=== PATIENT | male | born 1985 | race African-American/Black ===

== ENCOUNTER 2018-05-26 20:47 | Emergency (ER) | payer OTHER ==
[~2018-05-26] VITALS: Ht 177.8 cm; Wt 140.6 kg
[2018-05-26 20:50] VITALS: BP 150/82
--- NOTE | 2018-05-26 21:35 | PHYS DOC ---
Past Medical History Past Medical History: Depression, Schizophrenia (ARNULFO KAUR APRN) Past Surgical History: No Surgical History (ARNULFO KAUR APRN) Alcohol Use: Rarely Drug Use: Marijuana (ARNULFO KAUR APRN) Adult General Chief Complaint Chief Complaint: Congestion HPI HPI 32 y/o male presents to ER via POV for c/o cough, congestion and SOA for past 2 days. He reports he has been exposed to children with flu like illness recently. He reports his cough has been nonprod. and denies any CP/ palpitations. He reports he has felt congested and has had sore throat denying any difficulty swallowing. He reports sxs have slightly improved since onset and he has been using OTC meds such as Vicks, mucinex, and nyquil. He denies N/V /D or urinary sxs. He denies LAMB but states he does have some sinus congestion. He denies fever with current temp. 97.8. Pt is daily smoker. He denies any recent travel. (ARNULFO KAUR APRN) Review of Systems Review of Systems Constitutional: Denies fever or chills. Reports bodyaches Eyes: Denies change in visual acuity, redness, or eye pain [] HENT: Reports sinus congestion and sore throat- denies difficulty swallowing Respiratory: Reports nonprod. cough and SOA- denies SOA increases with exertion Cardiovascular: Denies CP/tightness GI: Denies abdominal pain, nausea, vomiting, bloody stools or diarrhea [] : Denies urinary sxs Musculoskeletal: Denies back/neck pain Integument: Denies rash, swelling or skin lesions [] Neurologic: Denies headache, focal weakness or sensory changes [] Endocrine: Denies polyuria or polydipsia [] All other systems were reviewed and found to be within normal limits, except as documented in this note. (ARNULFO KAUR APRN) Current Medications Current Medications Current Medications Medications (Trade) Dose Ordered Sig/Chiara Start Time Stop Time Status Last Admin Dose Admin Ibuprofen (Motrin) 800 mg 1X ONCE 05/26/18 22:00 05/26/18 22:00 DC 05/26/18 21:46 800 MG Oxymetazoline HCl (Afrin) 2 spray 1X ONCE 05/26/18 22:00 05/26/18 22:00 DC 05/26/18 21:46 2 SPRAY (ASTER TORRES DO) Allergies Allergies Allergies Coded Allergies Type Severity Reaction Last Updated Verified No Known Drug Allergies 09/26/14 No (ASTER TORRES DO) Physical Exam Physical Exam Constitutional: Well developed, well nourished, no acute distress, non-toxic appearance. [] HENT: Normocephalic, atraumatic, bilateral ears with mild erythema at TM without bulging/perforation/purulent drainage, oropharynx moist- smoke odor on breath. Mild pharyngeal erythema without swelling- uvula midline, no oral exudates, nasal congestion bilat. without drainage- tender in maxillary sinuses without facial swelling Eyes: Pupils equal, conjunctiva normal, no discharge. [] Neck: Normal range of motion, no tenderness, supple, no stridor/gross adenopathy. Trachea midline Cardiovascular: Tachycardic heart rate on triage- during exam rechecked with regular rhythm in 80-90s, no murmur [] Lungs & Thorax: Bilateral breath sounds clear to auscultation- resp. equal/ nonlabored. Good air movement throughout all lung cueto Abdomen: Bowel sounds normal, soft, no tenderness, no masses, no pulsatile masses. [] Skin: Warm, dry, no erythema, no rash. [] Back: No tenderness, no CVA tenderness. [] Extremities: No tenderness, no cyanosis, no clubbing, ROM intact, no edema. [] Neurologic: Alert and oriented X 3, normal motor function, normal sensory function, no focal deficits noted. [] Psychologic: Affect normal, judgement normal, mood normal. [] (ARNULFO KAUR APRN) Current Patient Data Vital Signs Vital Signs Date Time Temp Pulse Resp B/P (MAP) Pulse Ox O2 Delivery O2 Flow Rate FiO2 05/26/18 20:50 97.8 118 20 150/82 (104) 96 Room Air 97.8 (ASTER TORRES DO) EKG EKG [] (ARNULFO KAUR APRN) Radiology/Procedures Radiology/Procedures [] (ARNULFO KAUR APRN) Course & Med Decision Making Course & Med Decision Making Pt was evaluated for generalized cold like illness as had sinus congestion and sinus pressure. Plan of care was discussed with pt as his lung sounds were clear with good air movement. No cough noted during exam. Pt was afebrile although reported he had been exposed to others with flu like illness- flu test was offered and he preferred not to have this done. Pt opted for tx of Afrin and Ibuprofen while in the ER. After those administered on re-evaluation pt reports he is able to breath much better and is feeling much less congested. He is in no distress at time of re-eval. Discussed probable viral illness and advised on smoking cessation. Education provided on s&s to return to ER for and will provide with clinic/physician resource sheet for f/u. Pt advised on increasing fluids, Tylenol/ibuprofen PRN, and afrin use advising of not to use more than 3 days. Discharge instructions discussed. (ARNULFO KAUR APRN) Dragon Disclaimer Dragon Disclaimer This electronic medical record was generated, in whole or in part, using a voice recognition dictation system. (ARNULFO KAUR APRN) Departure Departure Impression: Primary Impression: Congestion of nasal sinus Additional Impression: Cough Disposition: 01 HOME, SELF-CARE Condition: STABLE Referrals: NO PCP (PCP) Patient Instructions: Cough, Adult, Sinus Headache, Smoking Cessation Additional Instructions: Drink plenty of fluids. Avoid smoking. You can take [id number]-[id number] Tylenol and/or ibuprofen for pain and fever control. You can use Afrin for 3 days do not use longer as this will cause rebound symptoms and irritate your sinuses. If you prefer no sinus spray other options are allergy medications- zyrtec/sloan examples. Take as directed on container. If symptoms persist follow-up with your primary doctor for re-evaluation and further care. Attending Signature Attending Signature I have reviewed the PA/BAG MAKER's note and plan of care. I was available for consultation as needed during the patient's visit in the emergency department. I agree with the clinical impression, plan, and disposition. (ASTER TORRES DO) Problem Qualifiers ARNULFO KAUR APRN May 26, 2018 21:35 ASTER TORRES DO Jun 14, 2018 17:52
[2018-05-26] MEDS ORDERED: OXYMETAZOLINE 0.05% NASAL SPRAY 30ML BOTTLE. NS ONE (22:00)
[2018-05-26] MEDS ORDERED: IBUPROFEN 400 MG TABLET. PO ONE (22:00)
== END 2018-05-26 21:55 | disposition home or self-care (01) ==
LOC: ER 20:47
DX: R09.81 Nasal congestion (principal); R05 Cough; F32.9 Major depressive disorder, single episode, unspecified; F20.9 Schizophrenia, unspecified
CPT/HCPCS: 99283

== ENCOUNTER 2018-08-20 21:24 | Emergency (ER) | payer MEDICAID, OTHER ==
[~2018-08-20] VITALS: Ht 177.8 cm; Wt 131.5 kg
[2018-08-20 21:34] VITALS: BP 144/82
[2018-08-20] MEDS ORDERED: FLUORESCEIN OPHTH TEST STRIP. OD ONE (21:45)
[2018-08-20] MEDS ORDERED: TETRACAINE 0.5% OPHTH SOLUTION 4ML BOTTLE. OD ONE (21:45)
[2018-08-20] MEDS ORDERED: ERYTHROMYCIN 0.5% OPHTH OINTMENT 1GM TUBE. OD ONE (21:45)
[2018-08-20] MEDS ORDERED: ERYT1OIN6 OP (22:04)
--- NOTE | 2018-08-20 22:04 | PHYS DOC ---
Past Medical History Past Medical History: No Pertinent History, Depression, Schizophrenia Past Surgical History: No Surgical History Smoking: Greater than 1 pack/day Alcohol Use: Rarely Drug Use: Marijuana Adult General Chief Complaint Chief Complaint: EYE PROBLEMS HPI HPI Patient is a 32-year-old male who presents with eye problems. 3 days ago he noticed that his right eye was tender to touch. This morning he woke up and his high was glued shut with pus was tender. He is wiped his eye with a wash rag this morning to clean it off and it opened. He has no known sick contacts. There was no trauma and he does not remember getting anything in his eye. He denies fever and chills. Review of Systems Review of Systems Constitutional: Denies fever or chills Eyes: Reports eye redness and eye pain HENT: Denies nasal congestion or sore throat Respiratory: Denies cough or shortness of breath Cardiovascular: Denies chest pain or palpitations GI: Denies abdominal pain, nausea, or vomiting : Denies dysuria or hematuria Musculoskeletal: Denies back pain or joint pain Integument: Denies rash or skin lesions Neurologic: Denies headache, focal weakness or sensory changes Complete systems were reviewed and found to be within normal limits, except as documented in this note. Current Medications Current Medications Current Medications Medications (Trade) Dose Ordered Sig/Chiara Start Time Stop Time Status Last Admin Dose Admin Erythromycin (Romycin) 0.25 inch 1X ONCE 08/20/18 21:45 08/20/18 21:46 DC 08/20/18 21:45 0.25 INCH Fluorescein Sodium (Ful-Jessika) 1 strip 1X ONCE 08/20/18 21:45 08/20/18 22:01 DC Tetracaine HCl (Tetracaine) 2 drop 1X ONCE 08/20/18 21:45 08/20/18 22:01 DC Allergies Allergies Allergies Coded Allergies Type Severity Reaction Last Updated Verified No Known Drug Allergies 09/26/14 No Physical Exam Physical Exam Constitutional: Well developed, well nourished, no acute distress, non-toxic appearance HENT: Normocephalic, atraumatic, oropharynx moist Eyes: PERRL, EOMI, right conjunctiva mildly erythematous, no discharge, hordoleum present on right upper eyelid Neck: Normal range of motion, no tenderness, supple Cardiovascular: Heart rate normal, regular rhythm Lungs & Thorax: Bilateral breath sounds clear to auscultation, no wheezing Abdomen: Soft, no tenderness Skin: Warm, dry, no erythema, no rash Back: No tenderness, no CVA tenderness Extremities: No tenderness, ROM intact, no edema Neurologic: Alert and oriented X 3, normal motor function, normal sensory function, no focal deficits noted Psychologic: Affect normal, judgement normal, mood normal Current Patient Data Vital Signs Vital Signs Date Time Temp Pulse Resp B/P (MAP) Pulse Ox O2 Delivery O2 Flow Rate FiO2 08/20/18 21:34 99.0 110 16 144/82 (102) 95 Room Air 99.0 EKG EKG [] Radiology/Procedures Radiology/Procedures [] Course & Med Decision Making Course & Med Decision Making Mr. Lopez is a 32-year-old male who presents with eye problems. He has a 3 day history of right eye tenderness woke up this morning with his eye shut with pus. On physical exam his right conjunctiva is mildly erythematous with a hordeolum present on upper eyelid. We gave him erythromycin gel and told him to use warm compresses. If it does not improve with the gel he should see an precision inspector. Patient stable for discharge with outpatient follow-up with PCP. Discussed findings and plan with patient, who acknowledge understanding and agreement. [] Dragon Disclaimer Dragon Disclaimer This electronic medical record was generated, in whole or in part, using a voice recognition dictation system. Departure Departure Impression: Primary Impression: Conjunctivitis Additional Impression: Stye external Disposition: 01 HOME, SELF-CARE Condition: STABLE Referrals: Nereyda AMARAL MD (PCP) Patient Instructions: Conjunctivitis (Viral and Bacterial), Sty Scripts Erythromycin Base (Erythromycin) 1 Gm Oint...g. 0.25 INCH OP QID for 5 Days, MISC Prov: ASTER TORRES DO 08/20/18 Problem Qualifiers Primary Impression: Conjunctivitis Conjunctivitis type: acute Acute conjunctivitis type: unspecified Laterality: right Qualified Codes: H10.31 - Unspecified acute conjunctivitis, right eye Additional Impression: Stye external Laterality: right Eyelid: unspecified eyelid Qualified Codes: H00.013 - Hordeolum externum right eye, unspecified eyelid ASTER TORRES DO Aug 20, 2018 22:04
== END 2018-08-20 22:21 | disposition home or self-care (01) ==
LOC: ER 21:24
DX: H00.011 Hordeolum externum right upper eyelid (principal); H10.31 Unspecified acute conjunctivitis, right eye; F20.9 Schizophrenia, unspecified; F17.200 Nicotine dependence, unspecified, uncomplicated
CPT/HCPCS: 99283

== ENCOUNTER 2018-09-28 20:41 | Emergency (ER) | payer MEDICAID ==
[~2018-09-28] VITALS: Ht 175.3 cm; Wt 131.5 kg
[~2018-09-28 20:41] MED LIST: ERYT1OIN6 OP
[2018-09-28 21:00] VITALS: BP 157/102
[2018-09-28] MEDS ORDERED: IBUPROFEN 200 MG TABLET. PO ONE (22:00)
[2018-09-28] MEDS ORDERED: HYDROcodone/APAP 5/325MG 1 TAB TABLET PO ONE (22:00)
--- NOTE | 2018-09-28 23:24 | RAD ---
INDICATION: Arm swelling COMPARISON: None. TECHNIQUE: Grayscale, color and doppler ultrasound images were obtained of the right upper extremity venous vasculature. RIGHT: No thrombus identified in the internal jugular, subclavian, axillary, brachial, basilic, cephalic, radial or ulnar veins. IMPRESSION: 1. No thrombus identified in deep venous system of right upper extremity. Electronically signed by: Satya Hein MD (09/28/2018 11:21 PM) [facility]
[2018-09-28] MEDS ORDERED: CEPH-264 PO (23:30)
--- NOTE | 2018-09-28 23:30 | PHYS DOC ---
Past Medical History Past Medical History: No Pertinent History, Depression, Schizophrenia Past Surgical History: No Surgical History Alcohol Use: Rarely Drug Use: Marijuana Adult General Chief Complaint Chief Complaint: UPPER EXTREMITY PAIN HPI HPI 32-year-old male presents to ER via POV for complaints of right arm pain and swelling. Patient states he woke this morning having pain in his right elbow extending to his right hand with swelling from his wrist to his hand. She denies fever. Patient denies any known injury. Patient states he had a little bit of tingling sensation in his forearm yesterday but woke this morning with increased pain and swelling which wasn't there yesterday. Pt denies taking any ove j-acf-enflosl medications prior to arrival. Pt is daily smoker. Denies prior blood clot hx or recent travel. Review of Systems Review of Systems Constitutional: Denies fever or chills Respiratory: Denies cough or shortness of breath [] Cardiovascular: No additional information not addressed in HPI [] GI: Denies abdominal pain, nausea, vomiting, bloody stools or diarrhea [] : Denies urinary sxs Musculoskeletal: Denies back pain. Reports rt elbow/forearm/wrist/hand pain with swelling in rt wrist/hand Integument: Denies rash or skin lesions [] Neurologic: Denies headache, focal weakness or sensory changes [] All other systems were reviewed and found to be within normal limits, except as documented in this note. Current Medications Current Medications Current Medications Medications (Trade) Dose Ordered Sig/Chiara Start Time Stop Time Status Last Admin Dose Admin Acetaminophen/ Hydrocodone Bitart (Lortab 5/325) 1 tab 1X ONCE 09/28/18 22:00 09/28/18 22:01 DC 09/28/18 21:57 1 TAB Ibuprofen (Motrin) 600 mg 1X ONCE 09/28/18 22:00 09/28/18 22:01 DC 09/28/18 21:57 600 MG Allergies Allergies Allergies Coded Allergies Type Severity Reaction Last Updated Verified No Known Drug Allergies 09/26/14 No Physical Exam Physical Exam Constitutional: Well developed, well nourished, no acute distress, non-toxic appearance. [] HENT: Normocephalic, atraumatic, oropharynx moist, nose normal. [] Eyes: Pupils equal, conjunctiva normal, no discharge. [] Neck: Normal range of motion, supple Cardiovascular: Heart rate regular rhythm- 90s during exam had been tachycardic at triage, no murmur [] Lungs & Thorax: Bilateral breath sounds clear to auscultation- resp. equal/n onlabored Abdomen: Bowel sounds normal, soft, no tenderness Skin: Warm, dry, no erythema, no rash. [] Back: No tenderness, no CVA tenderness. [] Extremities: No cyanosis, no clubbing, ROM intact. 2+ bilat. radial. Tender on palp. posterior rt elbow without palp. deformity. Tenderness extends into rt forearm/wrist/hand. Rt wrist/hand swelling with warmth in lateral side of rt hand- pt is skin tone difficult to fully assess for cellulitic appearance. No induration. No visible wounds. Full tube fitter with rt hand. Brisk cap refill. Neurologic: Alert and oriented X 3, normal motor function, normal sensory function, no focal deficits noted. [] Psychologic: Affect normal, judgement normal, mood normal. [] Current Patient Data Vital Signs Vital Signs Date Time Temp Pulse Resp B/P (MAP) Pulse Ox O2 Delivery O2 Flow Rate FiO2 09/28/18 21:57 16 99 Room Air 09/28/18 21:00 98.6 107 157/102 (120) 98.6 EKG EKG [] Radiology/Procedures Radiology/Procedures PROCEDURE: VENOUS UPPER EXTREMITY RIGHT INDICATION: Arm swelling COMPARISON: None. TECHNIQUE: Grayscale, color and doppler ultrasound images were obtained of the right upper extremity venous vasculature. RIGHT: No thrombus identified in the internal jugular, subclavian, axillary, brachial, basilic, cephalic, radial or ulnar veins. IMPRESSION: 1. No thrombus identified in deep venous system of right upper extremity. Electronically signed by: Satya Jarquin MD (09/28/2018 11:21 PM) [facility] DICTATED and SIGNED BY: SATYA JARQUIN MD DATE: 09/28/18 9244 Course & Med Decision Making Course & Med Decision Making Pertinent Imaging studies reviewed. (See chart for details) Patient was evaluated in the ER for complaints of right arm pain with swelling in his wrist and hand. Patient denied any known injury. Patient had tenderness on exam and right elbow with no obvious deformity x-ray was obtained and was reviewed by Dr. Mc with no obvious displaced fractures. Patient had ultrasound which was negative for DVT right upper extremity. Discussed imaging results with patient as well as probable cellulitis. Discussed plans for home discharge with prescription for Keflex. Patient advised on Tylenol and or ibuprofen use. Education provided on signs and symptoms to return to ER. Discharge instructions were discussed. Patient to follow-up with primary care physician if symptoms persist or with any concerns. Patient reported following ibuprofen and dose of [place] while in the ER he did have improvement in pain. On reexamination he has had no change in appearance of right upper extremity with full range of motion. He is PMS intact in right upper extremity. Dragon Disclaimer Dragon Disclaimer This electronic medical record was generated, in whole or in part, using a voice recognition dictation system. Departure Departure Impression: Primary Impression: Cellulitis Additional Impression: Arm pain, right Disposition: 01 HOME, SELF-CARE Condition: STABLE Referrals: Nereyda AMARAL MD (PCP) Patient Instructions: Cellulitis Additional Instructions: Tylenol and/or ibuprofen as needed for pain as directed on container. Follow-up with your primary care physician if symptoms persist and for reevaluation as needed or return to the Emergency Room for further care. Scripts Cephalexin (KEFLEX) 500 Mg Capsule 1 CAP PO BID, #14 CAP 0 Refills Prov: ARNULFO KAUR APRN 09/28/18 Problem Qualifiers ARNULFO KAUR APRN Sep 28, 2018 23:30
--- NOTE | 2018-09-29 09:08 | RAD ---
Examination: ELBOW RIGHT 3V History: Right elbow pain Comparison/Correlation: None Findings: Total 4 images of the right elbow were obtained. Joint spaces are normal. Nonspecific calcific densities are noted along the course of the distal triceps tendon attachment site. Calcification also is present just deep to the distal triceps tendon. No joint effusion suspected. Impression: Nonspecific calcification of the distal triceps tendon distribution. Correlate for possibility of avulsion injury at the distal triceps tendon attachment site. Clinically for possibility of calcific tendinitis. No degenerative changes. Electronically signed by: Tirso Mariscal MD (09/29/2018 9:06 AM) [facility]
== END 2018-09-28 23:36 | disposition home or self-care (01) ==
LOC: ER 20:41
DX: L03.113 Cellulitis of right upper limb (principal); M25.521 Pain in right elbow; F20.9 Schizophrenia, unspecified
CPT/HCPCS: 73080; 93971; 99284

== ENCOUNTER 2018-12-04 16:03 | Emergency (ER) | payer MEDICAID ==
[~2018-12-04] VITALS: Ht 177.8 cm; Wt 138.3 kg
[~2018-12-04 16:03] MED LIST changes: +CEPH-264 PO
[2018-12-04 16:40] VITALS: BP 167/107
[2018-12-04] MEDS ORDERED: KETOROLAC 30 MG/ML VIAL. IM STA (16:55)
--- NOTE | 2018-12-04 17:05 | PHYS DOC ---
Past Medical History Past Medical History: Schizophrenia (ASTER SCHOFIELD APRN) Past Surgical History: No Surgical History (ASTER SCHOFIELD APRN) Alcohol Use: None Drug Use: None (ASTER SCHOFIELD APRN) Attending Signature I have participated in the care of this patient and I have reviewed and agree with all pertinent clinical information above including history, exam, and recommendations. (MILIND ROACH MD) Adult General Chief Complaint Chief Complaint: LOWER EXT PAIN HPI HPI Patient is a 33 year old male who presents with right ankle pain has been ongoing for 3 days. The patient states his pain levels 10 out of 10 in severity and he took an ibuprofen around 10:30 yesterday which did not help. Denies any trauma to the extremity. (ASTER SCHOFIELD APRN) Review of Systems Review of Systems Constitutional: Denies fever or chills [] Eyes: Denies change in visual acuity, redness, or eye pain [] HENT: Denies nasal congestion or sore throat [] Respiratory: Denies cough or shortness of breath [] Cardiovascular: No additional information not addressed in HPI [] GI: Denies abdominal pain, nausea, vomiting, bloody stools or diarrhea [] : Denies dysuria or hematuria [] Musculoskeletal: Reports R ankle pain. Integument: Denies rash or skin lesions [] Neurologic: Denies headache, focal weakness or sensory changes [] Endocrine: Denies polyuria or polydipsia [] Complete systems were reviewed and found to be within normal limits, except as documented in this note. (ASTER SCHOFIELD APRN) Current Medications Current Medications Current Medications Medications (Trade) Dose Ordered Sig/Chiara Start Time Stop Time Status Last Admin Dose Admin Ketorolac Tromethamine (Toradol 30mg Vial) 30 mg 1X STAT 12/04/18 16:55 12/04/18 16:59 DC 12/04/18 17:15 30 MG (MILIND ROACH MD) Allergies Allergies Allergies Coded Allergies Type Severity Reaction Last Updated Verified No Known Drug Allergies 09/26/14 No (MILIND ROACH MD) Physical Exam Physical Exam Constitutional: Well developed, well nourished, no acute distress, non-toxic appearance. [] HENT: Normocephalic, atraumatic, bilateral external ears normal, oropharynx moist, no oral exudates, nose normal. [] Eyes: PERRLA, EOMI, conjunctiva normal, no discharge. [] Neck: Normal range of motion, no tenderness, supple, no stridor. [] Cardiovascular:Heart rate regular rhythm, no murmur [] Lungs & Thorax: Bilateral breath sounds clear to auscultation [] Abdomen: Bowel sounds normal, soft, no tenderness, no masses, no pulsatile masses. [] Skin: Warm, dry, no erythema, no rash. [] Back: No tenderness, no CVA tenderness. [] Extremities: Diffuse tenderness to R ankle. Mild edema. Neurovascular status intact. Pedal pulses equal bilaterally. Neurologic: Alert and oriented X 3, normal motor function, normal sensory function, no focal deficits noted. [] Psychologic: Affect normal, judgement normal, mood normal. [] (ASTER SCHOFIELD APRN) Current Patient Data Vital Signs Vital Signs Date Time Temp Pulse Resp B/P (MAP) Pulse Ox O2 Delivery O2 Flow Rate FiO2 12/04/18 16:40 98.6 107 16 167/107 (127) 94 Room Air 98.6 (MILIND ROACH MD) EKG EKG [] (ASTER SCHOFIELD APRN) Radiology/Procedures Radiology/Procedures X-ray interpreted by Dr. Roach No obvious acute abnormalities.[] (ASTER SCHOFIELD APRN) Course & Med Decision Making Course & Med Decision Making Pertinent Labs and Imaging studies reviewed. (See chart for details) Will get X-ray and give Toradol. (ASTER SCHOFIELD APRN) Dragon Disclaimer Dragon Disclaimer This electronic medical record was generated, in whole or in part, using a voice recognition dictation system. (ASTER SCHOFIELD APRN) Departure Departure Impression: Primary Impression: Ankle pain Disposition: HOME, SELF-CARE Condition: STABLE Referrals: Nereyda AMARAL MD (PCP) Patient Instructions: Ankle Pain Additional Instructions: Thank you for visiting [facility]. We appreciate you trusting us with your care. If any additional problems come up don't hesitate to return to visit us. Please follow up with your primary care provider so they can plan ad ditional care if needed and know about the problem that you had. If symptoms worsen come back to the Emergency Department. Any concerning symptoms that start such as chest pain, shortness of air, weakness or numbness on one side of the body, running high fevers or any other concerning symptoms return to the ER. Problem Qualifiers Primary Impression: Ankle pain Chronicity: acute Laterality: right Qualified Codes: M25.571 - Pain in right ankle and joints of right foot ASTER SCHOFIELD APRN Dec 04, 2018 17:05 MILIND ROACH MD Dec 05, 2018 09:37
--- NOTE | 2018-12-04 17:27 | RAD ---
ANKLE RIGHT 3V History: Swelling. Pain. Technique: 3 views right ankle. Comparison: None. Findings: Normal alignment. No fracture. Symmetric ankle mortise. Tiny plantar calcaneal spur. Impression: 1. No acute osseous abnormality. Electronically signed by: Zac Malik DO (12/04/2018 5:24 PM) [facility]
== END 2018-12-04 17:34 | disposition home or self-care (01) ==
LOC: ER 16:03
DX: M25.571 Pain in right ankle and joints of right foot (principal)
CPT/HCPCS: 73610; 96372; 99284; J1885

== ENCOUNTER 2019-07-04 18:06 | Emergency (ER) | payer MEDICAID ==
[~2019-07-04] VITALS: Ht 180.3 cm; Wt 140.9 kg
[2019-07-04] MEDS ORDERED: IV NORMAL SALINE 1000ML BAG 1,000 ML IV SCH (18:52)
[2019-07-04] MEDS ORDERED: fentaNYL PF VIAL 100 MCG/2 ML VIAL IV PRN (19:00)
[2019-07-04] MEDS ORDERED: ONDANSETRON PF 4 MG/2 ML VIAL. IVP ONE (19:00)
--- NOTE | 2019-07-04 19:04 | PHYS DOC ---
Past Medical History Past Medical History: Depression, Schizophrenia Past Surgical History: No Surgical History Smoking Status: Never Smoker Alcohol Use: None Drug Use: None General Adult EDM: Chief Complaint: SHORTNESS OF BREATH HPI: HPI: Patient is a 33 year old male who presents with complaint of right-sided rib pain for the last 2 to 3 days. Patient states that pain is sharp in nature and states that it is worsened with deep breathing. He states that he does have some shortness of breath, primarily because it hurts to breathe. He denies any nausea, vomiting or diaphoresis. He denies any precordial chest pain. Patient denies any recent injuries. He has had no abdominal pain. [] Review of Systems: Review of Systems: Constitutional: Denies fever or chills. [] Respiratory: Admits to shortness of breath. [] Cardiovascular: Denies chest pain or edema. [] GI: Denies abdominal pain, nausea, vomiting or diarrhea. [] Integument: Denies rash. [] Neurologic: Denies headache, focal weakness or sensory changes. [] A full 10 point review of systems has been reviewed and is otherwise negative. Heart Score: Risk Factors: Risk Factors: DM, Current or recent (<one month) smoker, HTN, HLP, family history of CAD, obesity. Risk Scores: Score 0 - 3: 2.5% MACE over next 6 weeks - Discharge Home Score 4 - 6: 20.3% MACE over next 6 weeks - Admit for Clinical Observation Score 7 - 10: 72.7% MACE over next 6 weeks - Early Invasive Strategies Current Medications: Current Medications Medications (Trade) Dose Ordered Sig/[facility] Start Time Stop Time Status Last Admin Dose Admin Fentanyl Citrate (Fentanyl 2ml Vial) 50 mcg PRN Q15MIN PRN 07/04/19 19:00 07/05/19 18:59 UNV Ondansetron HCl (Zofran) 4 mg 1X ONCE 07/04/19 19:00 07/04/19 19:01 UNV Sodium Chloride 1,000 ml @ 1,000 mls/hr Q1H 07/04/19 18:52 07/04/19 19:51 UNV Allergies: Allergies: Allergies Coded Allergies Type Severity Reaction Last Updated Verified No Known Drug Allergies 09/26/14 No Physical Exam: PE: Constitutional: Well developed, well nourished, no acute distress, non-toxic appearance. [] HENT: Normocephalic, atraumatic, bilateral external ears normal, oropharynx moist, no oral exudates, nose normal. [] Eyes: PERRLA, EOMI, conjunctiva normal, no discharge. [] Neck: Normal range of motion, no tenderness, supple, no stridor. [] Cardiovascular: Regular rate and rhythm [] Lungs & Thorax: Bilateral breath sounds clear to auscultation [] Abdomen: Bowel sounds normal, soft, no tenderness. [] Skin: Warm, dry, no erythema, no rash. [] Extremities: No tenderness, no cyanosis, no clubbing, ROM intact. [] Neurologic: Alert and oriented X 3, no focal deficits noted. [] Current Patient Data: Vital Signs: Vital Signs Date Time Temp Pulse Resp B/P (MAP) Pulse Ox O2 Delivery O2 Flow Rate FiO2 07/04/19 18:44 98.9 94 20 165/119 (134) 97 Room Air 98.9 EKG: EKG: [] Radiology/Procedures: Radiology/Procedures: [] Impression: PROCEDURE: PORTABLE CHEST 1V PORTABLE CHEST 1V History: Chest wall pain. Comparison: September 26, 2014 Findings: Minimal left midlung linear atelectasis. No consolidation or pleural effusion. Normal heart size. No pneumothorax. Impression: 1. No acute cardiopulmonary process. Electronically signed by: Zac Malik DO (07/04/2019 7:26 PM) [facility] Course & Med Decision Making: Course & Med Decision Making Pertinent Labs and Imaging studies reviewed. (See chart for details) [] Dragyoselyn Disclaimer: Dragyoselyn Disclaimer: This electronic medical record was generated, in whole or in part, using a voice recognition dictation system. Departure Departure Impression: Primary Impression: Costochondritis Additional Impression: Fatty (change of) liver, not elsewhere classified Disposition: 01 HOME, SELF-CARE Condition: STABLE Referrals: Nereyda AMARAL MD (PCP) Patient Instructions: Costochondritis Scripts Acetaminophen With Codeine (TYLENOL WITH CODEINE #3 TABLET) 1 Each Tablet 1 TAB PO PRN Q6HRS PRN for PAIN, #12 TAB Prov: TARAS JOSEPH Jr. DO 07/04/19 Diclofenac Sodium (DICLOFENAC SODIUM) 50 Mg Tablet.dr 1 TAB PO BID PRN for PAIN, #20 TAB Prov: TARAS JOSEPH Jr. DO 07/04/19 TARAS JOSEPH Jr. DO July 04, 2019 19:03
[2019-07-04 19:16] LABS: BASO # 0.1 x10^3/uL (0.0-0.2); BASO % 1 % (0-3); EOS # 0.2 x10^3/uL (0.0-0.7); EOS % 1 % (0-3); HEMATOCRIT 43.3 % (39.0-53.0); HEMOGLOBIN 14.2 g/dL (13.0-17.5); LYMPH # 3.4 x10^3/uL (1.0-4.8); LYMPH % 21 % (24-48); MEAN CORPUSCULAR HEMOGLOBIN 28 pg (25-35); MEAN CORPUSCULAR HGB CONC 33 g/dL (31-37); MEAN CORPUSCULAR VOLUME 86 fL (79-100); MONO # 1.4 x10^3/uL (0.0-1.1); MONO % 9 % (0-9); NEUT % 69 % (31-73); PLATELET COUNT 259 x10^3/uL (140-400); RED BLOOD COUNT 5.06 x10^6/uL (4.30-5.70); RED CELL DISTRIBUTION WIDTH 14.7 % (11.5-14.5); WHITE BLOOD COUNT 16.1 x10^3/uL (4.0-11.0)
[2019-07-04 19:22] LABS: CALCIUM 9.2 mg/dL (8.5-10.1); CREATININE 0.9 mg/dL (0.7-1.3); GFR 116.2; POTASSIUM 4.5 mmol/L (3.5-5.1)
--- NOTE | 2019-07-04 19:29 | RAD ---
PORTABLE CHEST 1V History: Chest wall pain. Comparison: September 26, 2014 Findings: Minimal left midlung linear atelectasis. No consolidation or pleural effusion. Normal heart size. No pneumothorax. Impression: 1. No acute cardiopulmonary process. Electronically signed by: Zac Malik DO (07/04/2019 7:26 PM) [facility]
[2019-07-04 19:31] LABS: ALBUMIN 3.7 g/dL (3.4-5.0); TOTAL BILIRUBIN 0.3 mg/dL (0.2-1.0); TOTAL PROTEIN 7.4 g/dL (6.4-8.2)
[2019-07-04 19:39] LABS: BILIRUBIN,URINE NEGATIVE (NEG); CLARITY,URINE CLEAR; COLOR,URINE YELLOW; NITRITE,URINE NEGATIVE (NEG); PROTEIN,URINE NEGATIVE (NEG-TRACE); SQUAMOUS EPITHELIAL CELL,UR FEW /LPF; UROBILINOGEN,URINE >=8.0 mg/dL (0.2 mg/dL)
[2019-07-04 19:40] LABS: BACTERIA,URINE 0 /HPF (0-FEW)
[2019-07-04] MEDS ORDERED: DICL50TA4 PO (21:34)
[2019-07-04] MEDS ORDERED: ACET-704 PO (21:34)
--- NOTE | 2019-07-04 21:51 | RAD ---
ABDOMEN LTD History: Upper quadrant pain. Comparison: None. Technique: Transabdominal ultrasound images are obtained of the right upper quadrant. Findings: Visualized pancreas is not well seen due to overlying bowel gas. Liver is increased in echogenicity. Right hepatic lobe measures 19.3 cm. Portal flow is hepatopedal. Mild gallbladder sludge. No gallbladder wall thickening. No pericholecystic fluid. No cholelithiasis. Common bile duct measures 4.5 mm in diameter. The right kidney measures 11.0 x 5.6 x 4.7 cm. No hydronephrosis. Visualized portions of the aorta and IVC have normal caliber. IMPRESSION: 1. Gallbladder sludge. 2. Hepatomegaly with increased echotexture, may indicate steatosis. Electronically signed by: Zac Malik DO (07/04/2019 9:47 PM) [facility]
[2019-07-04 22:47] VITALS: BP 141/99
== END 2019-07-04 22:46 | disposition home or self-care (01) ==
LOC: ER 18:06
DX: M94.0 Chondrocostal junction syndrome [Tietze] (principal); K76.0 Fatty (change of) liver, not elsewhere classified; R07.81 Pleurodynia; F32.9 Major depressive disorder, single episode, unspecified; F20.9 Schizophrenia, unspecified
CPT/HCPCS: 36415; 71045; 76705; 80053; 81001; 83690; 85025; 85379; 96374; 96375; 99285; J2405; J3010; J7030